=== PATIENT | female | born 1980 | race Caucasian/White ===

== ENCOUNTER → 2018-05-01 | Outpatient (REF) | payer OTHER | LOC: M SFHCLERA 10:41 | DX: R10.9 Unspecified abdominal pain (principal) ==

== ENCOUNTER → 2018-05-01 | Outpatient (CLI) | payer BC, OTHER | LOC: M LRY 10:15 | DX: R10.9 Unspecified abdominal pain (principal) ==

== ENCOUNTER → 2019-04-25 | Outpatient (CLI) | payer OTHER, BC ==
[2019-04-25 14:14] LABS: HEMATOCRIT 42.9 % (36.0-47.0); HEMOGLOBIN 13.5 g/dl (12.0-15.5); MEAN CORPUSCULAR HEMOGLOBIN 28.9 pg (27.0-33.0); MEAN CORPUSCULAR HGB CONC 31.5 g/dl (32.0-36.5); MEAN CORPUSCULAR VOLUME 91.9 fl (80.0-96.0); PLATELET COUNT, AUTOMATED 377 10^3/uL (150-450); RED BLOOD COUNT 4.67 10^6/uL (4.00-5.40); WHITE BLOOD COUNT 8.4 10^3/uL (4.0-10.0)
[2019-04-25 14:31] LABS: CHOLESTEROL RISK RATIO 1.896 (<5); THYROID STIMULATING HORMONE 2.4 uIU/ML (0.358-3.740)
[2019-04-28 14:42] LABS: HPV HYBRID CAPTURE II Negative (Negative)
== END ==
LOC: M SMT 09:02
PROVIDERS: ATTEND Advanced Practice Midwife
DX: Z12.4 Encounter for screening for malignant neoplasm of cervix (principal)

== ENCOUNTER → 2019-05-10 | Outpatient (CLI) | payer BC, OTHER ==
--- NOTE | 2019-05-10 10:40 | REPMRS ---
Patient History The patient states she had a clinical breast exam in 2018. No known family history of cancer. 3D TOMOSYNTHESIS WAS PERFORMED. [facility] lifetime risk for breast cancer is 9.5%. Digital Mammo Screening Bilat: May 10, 2019 - Exam #: [id number] Bilateral CC and MLO view(s) were taken. Technologist: Valeria Galo, Technologist FINDINGS: There are scattered fibroglandular densities. There is no evidence of cancer on this mammogram. Assessment: BI-RADS/ACR category 2 mammogram. Benign Findings. Recommendation Routine screening mammogram of both breasts in 1 year (for women over age 40). This mammogram was interpreted with the aid of an FDA-approved computer-aided dectection system. Electronically Signed By: Paulo Echeverria MD 05/10/19 [id number]
== END ==
LOC: M RAD 09:48
PROVIDERS: ATTEND Advanced Practice Midwife
DX: Z12.31 Encounter for screening mammogram for malignant neoplasm of breast (principal)

== ENCOUNTER → 2020-10-27 | Outpatient (CLI) | payer BC, OTHER ==
[2020-10-27 14:06] LABS: BASO % 0.2 % (0.0-1.0); EOS # 0.1 10^3/uL (0.0-0.5); HEMATOCRIT 41.1 % (36.0-47.0); HEMOGLOBIN 13.3 g/dl (12.0-15.5); LYMPH # 1.4 10^3/uL (1.5-5.0); LYMPH % 14.1 % (24.0-44.0); MEAN CORPUSCULAR HEMOGLOBIN 29.4 pg (27.0-33.0); MEAN CORPUSCULAR HGB CONC 32.4 g/dl (32.0-36.5); MEAN CORPUSCULAR VOLUME 90.9 fl (80.0-96.0); MONO # 0.6 10^3/uL (0.0-0.8); MONO % 6.3 % (2.0-8.0); NEUTROPHILS # 7.7 10^3/uL (1.5-8.5); NEUTROPHILS % 78.1 % (36.0-66.0); PLATELET COUNT, AUTOMATED 351 10^3/uL (150-450); RED BLOOD COUNT 4.52 10^6/uL (4.00-5.40); WHITE BLOOD COUNT 9.8 10^3/uL (4.0-10.0)
[2020-10-27 14:35] LABS: ALT/SGPT 22 U/L (12-78); BILIRUBIN,TOTAL 0.3 MG/DL (0.2-1.0); BLOOD UREA NITROGEN 12 MG/DL (7-18); CALCIUM LEVEL 9.4 MG/DL (8.5-10.1); CARBON DIOXIDE LEVEL 27 MEQ/L (21-32); CHLORIDE LEVEL 107 MEQ/L (98-107); GLOMERULAR FILTRATION RATE > 60.0 (>58); GLUCOSE, FASTING 79 MG/DL (70-100); LIPASE 73 U/L (73-393); POTASSIUM SERUM 4.3 MEQ/L (3.5-5.1); SODIUM LEVEL 138 MEQ/L (136-145); TOTAL PROTEIN 7.7 GM/DL (6.4-8.2)
== END ==
LOC: M LAB 13:36
PROVIDERS: ATTEND Physician Assistant
DX: R10.9 Unspecified abdominal pain (principal)

== ENCOUNTER 2020-10-30 10:00 | Emergency (ER) | payer BC, OTHER ==
[~2020-10-30] VITALS: Ht 162.6 cm; Wt 95.6 kg
[2020-10-30] MEDS ORDERED: KETOROLAC 30 MG/ML 1ML VIAL IV ONE (10:45)
[2020-10-30 10:53] LABS: BASO % 0.3 % (0.0-1.0); EOS # 0.1 10^3/uL (0.0-0.5); EOS % 0.4 % (0.0-3.0); HEMATOCRIT 43.7 % (36.0-47.0); LYMPH # 1.2 10^3/uL (1.5-5.0); LYMPH % 9.7 % (24.0-44.0); MEAN CORPUSCULAR HEMOGLOBIN 28.9 pg (27.0-33.0); MEAN CORPUSCULAR VOLUME 90.1 fl (80.0-96.0); MONO # 0.7 10^3/uL (0.0-0.8); MONO % 5.7 % (2.0-8.0); NEUTROPHILS # 10.2 10^3/uL (1.5-8.5); NEUTROPHILS % 83.5 % (36.0-66.0); PLATELET COUNT, AUTOMATED 446 10^3/uL (150-450); RED BLOOD COUNT 4.85 10^6/uL (4.00-5.40); WHITE BLOOD COUNT 12.2 10^3/uL (4.0-10.0)
[2020-10-30] MEDS ORDERED: ISOVUE-370 76% 100ML VIAL As Ordered ONE (11:02)
[2020-10-30 11:24] LABS: HCG, SERUM QUALITATIVE NEGATIVE (NEGATIVE)
--- NOTE | 2020-10-30 11:24 | REP ---
INDICATION: abd pain. COMPARISON: 04/29/2014 TECHNIQUE: Axial contrast-enhanced images from the lung bases to the pubic symphysis using 100 cc Isovue 370 intravenous contrast material. . This CT examination was performed using the following dose reduction techniques: Automated exposure control, adjustment of mA and/or kv according to the patient's size, and the use of iterative reconstruction technique. FINDINGS: Mucosal thickening with pericolonic inflammatory stranding involving the mid sigmoid colon along with scattered diverticula is consistent with acute diverticulitis. No bowel obstruction. No free air or free fluid to suggest perforation. No ascites. No abscess. Remainder of the small and large bowel is unremarkable. Liver demonstrates mild fatty infiltration. Spleen, pancreas, gallbladder, bilateral adrenal glands and kidneys are normal. Pelvis demonstrates normal bladder and age-appropriate prostate/seminal vesicles. No ascites. No free air. No intraperitoneal or retroperitoneal adenopathy. Abdominal aorta and vasculature appear normal. Musculoskeletal structures are intact and without acute osseous abnormality. IMPRESSION: Acute sigmoid diverticulitis. No evidence for bowel obstruction or perforation. No drainable collection or abscess. <Electronically signed by Sukhdev Mcclain > 10/30/20 [id number]
[2020-10-30 11:25] LABS: ALT/SGPT 24 U/L (12-78); BILIRUBIN,DIRECT 0.2 MG/DL (0.0-0.2); BILIRUBIN,TOTAL 0.4 MG/DL (0.2-1.0); LIPASE 69 U/L (73-393); TOTAL PROTEIN 8.1 GM/DL (6.4-8.2)
[2020-10-30 11:45] VITALS: BP 132/74
[2020-10-30] MEDS ORDERED: HYDR-3713 PO (11:45)
[2020-10-30] MEDS ORDERED: CIPR-249 PO (11:45)
[2020-10-30] MEDS ORDERED: FLAG500T PO (11:46)
== END 2020-10-30 11:55 | disposition home or self-care (01) ==
LOC: M ED 10:00
DX: K57.92 Diverticulitis of intestine, part unspecified, without perforation or abscess without bleeding (principal); Z88.8 Allergy status to other drugs, medicaments and biological substances
CPT/HCPCS: 74177; 80047; 80076; 81001; 83690; 84702; 84703; 85025; 96374; 99284; J1885; Q9967

== ENCOUNTER → 2023-06-21 | Outpatient (REF) | payer BC, OTHER ==
[~2023-06-21] MED LIST: CIPR-249 PO; FLAG500T PO; HYDR-3713 PO
== END ==
LOC: M WUC 16:24
PROVIDERS: ATTEND Nurse Practitioner Family
DX: M79.10 Myalgia, unspecified site (principal); R50.9 Fever, unspecified